=== PATIENT | female | born 1995 | race Hispanic/Latino ===

== ENCOUNTER 2020-01-15 04:37 | Emergency (ER) | payer SELFPAY ==
[2020-01-15] VITALS (13 sets, daily range): BP systolic 124–154; BP diastolic 86–102; PULSE 76–110; RESP 14–25; TEMP 37.1; O2SAT 94–100
--- NOTE | ~2020-01-15 | XR_ITS ---
EXAMINATION: XR chest 2V EXAM DATE: 01/15/2020 05:58 INDICATION: Midline, left-sided chest pain. TECHNIQUE: Frontal and lateral projections of the chest obtained and reviewed. Comparison is made to prior examination from 01/24/2004. FINDINGS: The lungs are clear. There are no pleural effusions. The cardiomediastinal silhouette is within normal limits. There is no pneumothorax suspected. The bones and soft tissues are unremarkab le. IMPRESSION: Normal chest x-ray exam. Reviewed, dictated and finalized at location B. IMPRESSION: Normal chest x-ray exam.
--- NOTE | 2020-01-15 04:46 | ECG_ITS ---
Measurements Intervals [place] Rate: 97 P: 29 TN: 141 QRS: 4 QRSD: 102 T: 33 QT: 352 QTc: 448 Interpretive Statements SINUS RHYTHM BASELINE ARTIFACT- I, III NORMAL ECG Electronically Signed On 01-15-2020 6:42:51 CDT by Michele Merlos D.O.
[2020-01-15] MEDS: ASPIRIN 81 MG CHEWABLE TABLET 324 MG PO (05:09)
[2020-01-15 05:25] LABS: Basophils Absolute Auto 0.1 K/mm3 (0.0-0.1); Basophils Percent Auto 0.7 % (0.2-1.2); Eosinophils Absolute Auto 0.2 K/mm3 (0-0.3); Hematocrit 40.1 % (37.0-47.0); Hemoglobin 13.1 g/dL (12.0-15.0); Immature Granulocyte Absolute 0.11 K/mm3 (0.00-0.031); Immature Granulocyte Percent A 1.3 % (0-0.5); Lymphocytes Absolute Auto 2.73 K/mm3 (0.9-3.2); Lymphocytes Percent Auto 31.7 % (18.3-44.2); Mean Corpuscular HGB Conc 32.7 g/dl (32-36); Mean Corpuscular Hemoglobin 27.9 pg (26-34); Mean Corpuscular Volume 85.5 fl (80-100); Mean Platelet Volume 10.3 fl (7.4-10.4); Monocytes Absolute Auto 0.8 K/mm3 (0.1-0.6); Monocytes Percent Auto 8.7 % (2.6-8.5); Neutrophils Absolute Auto 4.8 K/mm3 (1.3-6.7); Neutrophils Percent Auto 55.6 % (45.5-73.1); Platelet Count Result 300 k/mm3 (150-375); Red Blood Count 4.69 M/mm3 (4.2-5.4); Red Cell Distribution Width 11.4 % (11.5-14.5); White Blood Count 8.6 K/mm3 (4.5-10.0)
[2020-01-15 05:33] LABS: Prothrombin Time 12.8 Seconds (11.1-14.7)
[2020-01-15 05:34] LABS: Partial Thromboplastin Time 34.5 SECONDS (22.3-36.8)
[2020-01-15 05:39] LABS: Anion Gap 5 mmol/L (8-16); Blood Urea Nitrogen 14 mg/dL (7-17); Carbon Dioxide 33 mmol/L (22-30); Chloride 102 mmol/L (98-107); Estimated CRCL calculation 167 ml/min; Estimated Glomerular Filt Rate > 60; Glucose 105 mg/dL (65-105); Potassium 3.6 mmol/L (3.4-5.0); Sodium 140 mmol/L (137-145)
[2020-01-15 05:50] LABS: Troponin I < 0.012 ng/mL (0.000-0.034)
--- NOTE | 2020-01-15 06:30 | ED.CHESTPAIN ---
HPI - Chest Pain General Chief Complaint: Chest Pain <Slim White MD - Last Filed: 01/15/20 06:54> Stated Complaint: chest pain <Slim White MD - Last Filed: 01/15/20 06:54> Time Seen by Provider: 01/15/20 04:47 <Slim White MD - Last Filed: 01/15/20 06:54> History of Present Illness HPI narrative: Patient is a 24-year-old female who presents the ER with chest pain. Chest pain was central/left-sided. Noted to her left shoulder. Lasted approximately 1 hour. No diaphoresis/nausea/vomiting. No shortness of breath. Has had similar symptoms in the past that she attributes to acid reflux but it never radiated to her shoulder. Patient denies feeling particularly anxious but she does endorse depression. 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 She has had to put her life in school on hold while she cares for her mom. Patient is tearful during this discussion. <Slim White MD - Last Filed: 01/15/20 06:54> Related Data Home Medications: Home Medications Medication Instructions Recorded Confirmed No Home Medications 01/15/20 <Slim White MD - Last Filed: 01/15/20 06:54> Allergies/Adverse Reactions: Allergies Allergy/AdvReac Type Severity Reaction Status Date / Time No Known Allergies Allergy Mild Verified 08/22/11 17:32 <Slim White MD - Last Filed: 01/15/20 06:54> Review of Systems Review of Systems: All systems reviewed & are unremarkable except as noted in HPI and below <Slim White MD - Last Filed: 01/15/20 06:54> Constitutional: Constitutional: Denies chills, Denies fever(s) and Denies weakness <Slim White MD - Last Filed: 01/15/20 06:54> ENT: Denies nasal congestion and Denies sore throat <Slim White MD - Last Filed: 01/15/20 06:54> Cardiovascular: Cardiovascular: Reports chest pain, Denies rapid heart rate and Reports radiating jaw, neck or arm pain <Slim White MD - Last Filed: 01/15/20 06:54> Respiratory: Respiratory: Denies cough, Denies dyspnea and Denies wheezing <Slim White MD - Last Filed: 01/15/20 06:54> Gastrointestinal: Gastrointestinal: Denies abdominal pain, Denies nausea and Denies vomiting <Slim White MD - Last Filed: 01/15/20 06:54> PMFSH Past Medical History Medical History: Medical History (Updated 01/15/20 @ 06:54 by Slim White MD) Healthy female adult <Slim White MD - Last Filed: 01/15/20 06:54> Surgical History Surgical History: Surgical History (Updated 01/15/20 @ 06:32 by Slim White MD) No history of previous surgery <Slim White MD - Last Filed: 01/15/20 06:54> Social History Social History: Social History (Updated 01/15/20 @ 06:32 by Slim White MD) Smoking status: Never smoker <Slim White MD - Last Filed: 01/15/20 06:54> Exam Narrative: Exam Narrative: GENERAL: Well-appearing, well-nourished, and in no acute distress. HEAD: Normocephalic, atraumatic. ENT: Mucous membranes moist. CHEST: Clear to auscultation. No respiratory distress. No reproducible pain with palpation. HEART: Regular rate and rhythm. Normal peripheral pulses. ABDOMEN: Soft, nontender, nondistended. EXTREMITIES: Normal range of motion. No edema. SKIN: Warm, dry, no rash. NEURO: Alert and oriented x3. <Slim White MD - Last Filed: 01/15/20 06:54> Course Vital Signs Vital signs: Vital Signs Temperature 37.1 C 01/15/20 04:40 Pulse Rate 110 H 01/15/20 04:40 Respiratory Rate 17 01/15/20 04:40 Blood Pressure 154/102 H 01/15/20 04:40 Pulse Oximetry 100 01/15/20 04:40 Temperature 37.1 C 01/15/20 04:40 Pulse Rate 78 01/15/20 07:31 Respiratory Rate 18 01/15/20 07:31 Blood Pressure 141/98 H 01/15/20 07:31 Pulse Oximetry 100 01/15/20 07:31 <Slim White MD - Last Filed: 01/15/20 06:5
[2020-01-15 08:08] LABS: Troponin I < 0.012 ng/mL (0.000-0.034)
--- NOTE | 2020-01-15 08:16 | PC.NURSE ---
ERP CAITLYN INFORMED THAT 3HOUR TROP IS BACK AND NEGATIVE.
== END 2020-01-15 08:25 | disposition home or self-care (01) ==
PROVIDERS: Emergency Medicine; Emergency Provider Emergency Medicine
DX: R07.89 Other chest pain (principal)
CPT/HCPCS: 36415; 71046; 80048; 84484; 85025; 85610; 85730; 93005; 99284; A9270

== ENCOUNTER 2023-04-15 12:58 | Emergency (ER) | payer SELFPAY ==
[2023-04-15 13:19] VITALS: BP 139/93; PULSE 92; RESP 16; TEMP 37.4; O2SAT 100
--- NOTE | 2023-04-15 13:56 | ED.URI ---
HPI - URI/Sore Throat General Chief Complaint: Upper Respiratory Infection Stated Complaint: Sore Throat Time Seen by Provider: 04/15/23 13:56 History of Present Illness HPI Narrative: 27 year female presented for complaint of sore throat, headache, nausea , fever few days. States symptoms worsened last night. taking TheraFlu without significant relief. Denies vomiting, diarrhea, lethargy, or difficulty maintaining secretions. Related Data Allergies Allergy/AdvReac Type Severity Reaction Status Date / Time No Known Allergies Allergy Mild Verified 04/15/23 13:32 Review of Systems Review of Systems: CONSTITUTIONAL: Denies body aches, fever, chills, or sweats. EYES: Denies visual changes, redness, or discharge. ENT: reports sore throat Denies rhinorrhea, congestion, or otalgia. CARDIOVASCULAR: Denies chest pain, palpitations, or edema. RESPIRATORY: Denies dyspnea. GASTROINTESTINAL: Denies abdominal pain, vomiting, or diarrhea. SKIN: Denies rash, itching, or wounds. MUSCULOSKELETAL: Denies back pain, joint pain, or myalgia. [facility] Past Medical History Medical History Healthy female adult Surgical History Surgical History No history of previous surgery Social History Social History Smoking status: Never smoker Exam Narrative: GENERAL: mildly Ill-appearing, no acute distress. EYES: conjunctivae clear ENT: Mucous membranes moist. TM pearly sheehan with normal light reflex bilaterally; no tragal tenderness. Oropharynx erythematous Tonsils enlarged 2+and without exudate. No drooling, no hoarseness, no trismus, uvula midline. No tripod positioning, hot potato voice, or soft palate swelling. NECK: Supple. No lymphadenopathy CHEST: Clear to auscultation, breath sounds equal. No respiratory distress, speaks in full sentences. HEART: Regular rate and rhythm. No murmur heard. SKIN: Warm, dry, no rash. NEURO: Alert and oriented x3. Course Course Emergency Course: Patient is aware of diagnosis, understands and agrees to treatment plan. Anticipatory guidance given. Patient agrees to follow-up as directed and is aware of reasons to seek care at the emergency department. Portions of this record may have been created with voice recognition software Level of Care: Express Care Visit Vital Signs Vital signs: Vital Signs Temperature 99.3 F 04/15/23 13:19 Pulse Rate 92 04/15/23 13:19 Respiratory Rate 16 04/15/23 13:19 Blood Pressure 139/93 H 04/15/23 13:19 Pulse Oximetry 100 04/15/23 13:19 Oxygen Delivery Room Air 04/15/23 13:19 Temperature 99.3 F 04/15/23 13:19 Pulse Rate 92 04/15/23 13:19 Respiratory Rate 16 04/15/23 13:19 Blood Pressure 139/93 H 04/15/23 13:19 Pulse Oximetry 100 04/15/23 13:19 Oxygen Delivery Room Air 04/15/23 13:19 MDM - URI/Sore Throat MDM Narrative Medical decision making narrative: POS strep result reviewed with pt. Advise supportive treatments. Patient is appropriate for outpatient treatment and follow-up. Differential Diagnosis Differential diagnosis: Likely upper respiratory infection, viral infection and pharyngitis Lab Data Labs: Strep Screen Positive Group A Strep *(Reference Range: Negative)* Discharge Plan Discharge Clinical Impression: Strep pharyngitis Patient Disposition: Home, Self-Care Condition: Stable Instructions: Antibiotic Form, Strep Throat (ED) Additional Instructions: - Take the antibiotic as directed. Fever and sore throat typically resolve within one to three days. Most patients can return to work, after 12 to 24 hours of antibiotic therapy, provided you are fever free and otherwise well. -Eat and drink things that are easy to swallow, like soft foods, cool liquid
== END 2023-04-15 14:08 | disposition home or self-care (01) ==
PROVIDERS: Emergency Provider Nurse Practitioner Family
DX: J02.0 Streptococcal pharyngitis (principal)
CPT/HCPCS: 87880; 99213; G0463

== ENCOUNTER 2023-05-10 09:01 | Emergency (ER) | payer SELFPAY ==
--- NOTE | ~2023-05-10 | XR_ITS ---
Cervical Spine: AP, oblique, lateral, open-mouth views Clinical History: Pain Findings: There is reversal normal cervical lordosis.. The vertebral bodies and posterior elements a ppear intact. The intervertebral disc spaces are well maintained. Pre-vertebral soft tissues are unr emarkable. Impression: Reversal of the normal cervical lordosis, otherwise no significant abnormality seen. Reviewed, dictated and finalized at location . [facility]TER Impression: Reversal of the normal cervical lordosis, otherwise no significant abnormality seen.
--- NOTE | ~2023-05-10 | XR_ITS ---
Left Knee Technique: AP, lateral, and sunrise views were obtained. Clinical History: Injury Findings: No fracture or dislocation is seen. Osseous alignment is anatomic. Joint spaces are preserv ed without degenerative or erosive change. Soft tissues are unremarkable. No joint effusion is seen. Impression: Unremarkable left knee radiographs. Reviewed, dictated and finalized at [facility]. [employer] SPECIALIST Impression: Unremarkable left knee radiographs.
[2023-05-10 09:11] VITALS: BP 122/74; PULSE 86; RESP 18; TEMP 37.3; O2SAT 96
--- NOTE | 2023-05-10 10:33 | ED.FALL ---
HPI - Fall General Chief Complaint: Fall Stated Complaint: Fall Source: patient Mode of arrival: ambulatory Limitations: no limitations History of Present Illness HPI Narrative: Patient presents for evaluation after a fall last night. She states she tripped over her dog walking down five steps. She fell and hit her left knee against the ground. She then fell backward and felt a strain in her neck thereafter. She did not hit her head. No LOC. She is not on blood thinners. She currently rates her pain in her left knee as 6/10 and neck as 5/10. She took one dose of ibuprofen with some improvement in her symptoms thereafter. No loss of ROM in the neck or the knee. Movement makes her pain worse. She denies radicular component to pain in both areas and denies any paresthesias. Related Data Allergies Allergy/AdvReac Type Severity Reaction Status Date / Time No Known Allergies Allergy Mild Verified 05/10/23 10:28 Review of Systems Review of Systems: CONSTITUTIONAL: Denies fever, chills, or sweats. EYES: Denies visual changes, redness, or discharge. ENT: Denies rhinorrhea, congestion, sore throat, or otalgia. CARDIOVASCULAR: Denies chest pain, palpitations, or edema. RESPIRATORY: Denies cough or dyspnea. GASTROINTESTINAL: Denies abdominal pain, nausea, vomiting, or diarrhea. GENITOURINARY: Denies dysuria or hematuria. SKIN: Denies rash or itching. MUSCULOSKELETAL: Reports neck pain and left knee pain NEUROLOGIC: Denies headache, numbness, dizziness, or weakness. PSYCHIATRIC: Denies anxiety or depression. PMFSH Past Medical History Medical History Healthy female adult Surgical History Surgical History No history of previous surgery Family History Family History Mother Family history non-contributory Social History Social History Smoking status: Never smoker Substance use: never Living arrangements: with family Spiritual care concerns: No Exam Narrative: GENERAL: Well-appearing, well-nourished, and in no acute distress. HEAD: Normocephalic, atraumatic. EYES: PERRLA and EOMI. ENT: Nares clear, no rhinorrhea or epistaxis. Mucous membranes moist. Oropharynx without tonsillar hypertrophy exudate or other lesions. Bilateral TMs pearly sheehan nonbulging NECK: Supple. No adenopathy or masses. No carotid bruits or JVD. There is tenderness in midline and paraspinous muscles of cervical spine. Full ROM of neck intact. CHEST: Clear to auscultation. No respiratory distress. No wheezes rales or rhonchi HEART: Regular rate and rhythm. No murmur heard. Normal peripheral pulses. ABDOMEN: Soft, nontender, nondistended, normal active bowel sounds. EXTREMITIES: There is mild tenderness to the anterior aspect of left knee. No crepitus or deformity. There is mild swelling present. Full ROM of left knee intact. SKIN: Warm, dry, no rash. NEURO: No focal deficits. Alert and oriented x3. PSYCH: Normal mood and affect. Course Course Emergency Course: This is a 27-year-old female who presented for evaluation of neck pain and left knee pain following a fall last night. X-rays were negative for fracture. Patient did not have any blunt trauma to the neck warranting CT imaging. She appears in no apparent distress. Will dc with ibuprofen and flexeril. Application of warm moist heat may help. Follow up with primary provider. Go to the ER for worsening symptoms. Pt in agreement with plan of care. Level of Care: Express Care Visit Vital Signs Vital signs: Vital Signs Temperature 37.3 C 05/10/23 09:11 Pulse Rate 86 05/10/23 09:11 Respiratory Rate 18 05/10/23 09:11 Blood Pressure 122/74 05/10/23 09:11 Pulse Oximetry 96 05/10/23 09:11 Oxygen Delivery Room Air
== END 2023-05-10 11:01 | disposition home or self-care (01) ==
PROVIDERS: Emergency Provider Nurse Practitioner
DX: S16.1XXA Strain of muscle, fascia and tendon at neck level, initial encounter (principal); S80.02XA Contusion of left knee, initial encounter; W10.9XXA Fall (on) (from) unspecified stairs and steps, initial encounter
CPT/HCPCS: 72050; 73564; 99214; G0463

== ENCOUNTER 2023-05-14 09:54 | Emergency (ER) | payer SELFPAY ==
[2023-05-14 10:01] VITALS: BP 143/87; PULSE 86; RESP 16; TEMP 36.9; O2SAT 100
--- NOTE | 2023-05-14 10:01 | ED.GENADULT ---
HPI - General Adult General Chief complaint: Back Pain/Injury Stated complaint: Back Pain Time Seen by Provider: 05/14/23 10:01 27-year-old female patient presents to the [facility] with complaints of neck pain. Patient was seen in the [facility] earlier this week after she fell down some stairs injuring her knee and complaining of neck pain. Patient had imaging done at that time and there was no acute fractures noted. Patient was given ibuprofen and muscle relaxants and told to follow-up with her primary doctor. Patient states that last night she went to work and felt like she was continued to have some pain and soreness and tightness to the neck area. Patient states she left work yesterday after about 2 hours. 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 Patient states she has continued to take the ibuprofen and muscle relaxers but states she does not take the muscle relaxers while at work. Patient states she has been using heat to the neck area. Denies any numbness or tingling to the legs or upper extremities. Denies any loss of bowel or bladder control. Source: patient Mode of arrival: ambulatory Limitations: no limitations Related Data Allergies Allergy/AdvReac Type Severity Reaction Status Date / Time No Known Allergies Allergy Mild Verified 05/10/23 10:28 Review of Systems Review of Systems: CONSTITUTIONAL: Denies fever, chills, or sweats. EYES: Denies visual changes, redness, or discharge. ENT: Denies rhinorrhea, congestion, sore throat, or otalgia. CARDIOVASCULAR: Denies chest pain, palpitations, or edema. RESPIRATORY: Denies cough or dyspnea. GASTROINTESTINAL: Denies abdominal pain, nausea, vomiting, or diarrhea. GENITOURINARY: Denies dysuria or hematuria. SKIN: Denies rash or itching. MUSCULOSKELETAL: Denies back pain, joint pain, or myalgia. Positive neck pain. NEUROLOGIC: Denies headache, numbness, or weakness. PSYCHIATRIC: Denies anxiety or depression. [facility] Past Medical History Medical History Healthy female adult Surgical History Surgical History No history of previous surgery Family History Family History Mother Family history non-contributory Social History Social History Smoking status: Never smoker Substance use: never Living arrangements: with family Spiritual care concerns: No Comments At the time of my signature I agree with nursing past medical history, surgical, social, and family history. There is no relevant family history pertinent to the presenting complaint. Exam Narrative: GENERAL: Well-appearing, well-nourished, and in no acute distress. HEAD: Normocephalic, atraumatic. EYES: PERRLA and EOMI. ENT: Nares clear, no rhinorrhea or epistaxis. Mucous membranes moist. NECK: Supple, no lymphadenopathy. No surface trauma, no soft tissue. muscle tenderness noted to bilateral sides of the trapezius muscle no obvious spasm noted. Trachea midline. No subq emphysema or crepitus. No ame tenderness, step-offs or deformity to firm Palpation at posterior midline. FROM without limitation or pain, normal flexion, extension,Lateral bending, rotation, and axial load. CHEST: Clear to auscultation. No respiratory distress. HEART: Regular rate and rhythm. No murmur heard. Normal peripheral pulses. ABDOMEN: Soft, nontender, nondistended, normal active bowel sounds. EXTREMITIES: Normal range of motion. No edema. BACK: Patient is able to ambulated without assistance. Pt is seated on the stretcher in no obvious distress. No surface trauma noted. No muscle tenderness to Palpation. No spasm or mass. No step-offs or deformity noted to the cervical, thoracic or lumbar spine to firm Palpation at the midline. No CVA tenderness to
== END 2023-05-14 10:17 | disposition home or self-care (01) ==
PROVIDERS: Emergency Provider Nurse Practitioner Family
DX: S16.1XXA Strain of muscle, fascia and tendon at neck level, initial encounter (principal); W10.9XXA Fall (on) (from) unspecified stairs and steps, initial encounter
CPT/HCPCS: 99212; G0463

== ENCOUNTER 2025-03-10 05:32 | Emergency (ER) | payer SELFPAY ==
[2025-03-10 05:38] VITALS: BP 115/88; PULSE 101; RESP 20; TEMP 36.8; O2SAT 100
[2025-03-10] MEDS: FLUORESCEIN SOD 1 MG/STRIP EACH EYE (05:51)
[2025-03-10] MEDS: TETRACAINE HCL 0.5% OPHTH SOLN 4 ML BTL 1 DROP EACH EYE (05:52)
--- NOTE | 2025-03-10 05:52 | ED.EYEPROB ---
HPI - Eye Problem General Chief complaint: Eye Problems Stated complaint: pink eye left eye since Tuesday. Time Seen by Provider: 03/10/25 05:36 History of Present Illness HPI Narrative: Patient has noticed redness to R eye since Tuesday, has gotten increasingly irritated uncomfortable, and she has noticed her vision seems more blurry since Tuesday. Related Data Allergies Allergy/AdvReac Type Severity Reaction Status Date / Time No Known Allergies Allergy Mild Verified 03/10/25 05:33 Review of Systems Review of Systems: All systems reviewed & are unremarkable except as noted in HPI and below PMFSH Past Medical History Medical History Healthy female adult Surgical History Surgical History No history of previous surgery Family History Family History Mother Family history non-contributory Social History Social History Smoking status: Never smoker Substance use: never Living arrangements: with family Spiritual care concerns: No Exam Narrative: EXAMINATION OF ORGAN SYSTEMS/BODY AREAS: Constitutional: Vital signs per nursing GENERAL: Appears slightly uncomfortable, constant tears from right eye HEAD: Normal with no signs of head trauma. EYES: EOMI, PERRL, R eye very injected, IOP 12, no fluorescein uptake, VA 20/100 vs L eye 20/20 ENT: Hearing grossly intact LUNGS: Nonlabored breathing. HEART: [Regular rate and rhythm] ABD: [Soft], [nontender to palpation] EXT: Normal range of motion SKIN: [No rashes or lesions.] NEURO: [Alert. No gross focal sensory or strength deficits.] PSYCH: Normal affect Course Vital Signs Vital signs: Vital Signs Temperature 98.3 F 03/10/25 05:38 Pulse Rate 101 H 03/10/25 05:38 Respiratory Rate 20 03/10/25 05:38 Blood Pressure 115/88 03/10/25 05:38 Pulse Oximetry 100 03/10/25 05:38 Temperature 98.3 F 03/10/25 05:38 Pulse Rate 101 H 03/10/25 05:38 Respiratory Rate 20 03/10/25 05:38 Blood Pressure 115/88 03/10/25 05:38 Pulse Oximetry 100 03/10/25 05:38 Oxygen Delivery Room Air 03/10/25 05:46 MDM - Eye Problem MDM Narrative Medical decision making narrative: Patient presents with painful tearing red right eye with decreased vision. On exam, EOMI, PERRL, R eye very injected, IOP 12, no fluorescein uptake, VA 20/100 vs L eye 20/20 which I felt was concerning and therefore will consult Ophthalmology. Patient had great relief after tetracaine. Discussed with Dr. Sarmad keenan at [facility], who recommends starting Maxitrol drops, close follow-up arranged for Tuesday, discussed this with patient was agreeable to plan, strict return precautions discussed. Discharge Plan Discharge Clinical Impression: Conjunctivitis Patient Disposition: Home Condition: Stable Instructions: Conjunctivitis (ED) Additional Instructions: Please follow up with [facility] at 8:30am Tuesday You can call [phone] for any concerns/issues. If your symptoms worsen, especially if you start having more pain or worsening vision, please go straight to either [facility] or [facility]. Patient Language: Maori Prescriptions: New neomycin-polymyxin B-dexameth [Maxitrol] 3.5mg/mL-10,000 unit/mL-0.1 % drops,suspension 1 drp RIGHT EYE Q8H 5 Days Qty: 5 0RF Artificial Tears (cmc) 1 % drops 1 drp RIGHT EYE Q6H Qty: 15 0RF No Action ibuprofen 800 mg tablet 800 mg PO TID PRN (Reason: pain) Qty: 30 0RF cyclobenzaprine 10 mg tablet 10 mg PO TID PRN (Reason: muscle spasm) Qty: 30 0RF Follow-up/Referrals: Arturo Kaur MD [Primary Care Provider, Family Practice] Stand Alone Forms: Work/School Release IP
[2025-03-10] MEDS: POLYMYXIN/TRIMETHOPRIM OPHTH 10 ML DROPS 1 DROP RIGHT EYE (06:31)
== END 2025-03-10 06:58 | disposition home or self-care (01) ==
PROVIDERS: Emergency Provider Emergency Medicine; PCP Emergency Medicine
DX: H10.9 Unspecified conjunctivitis (principal)
CPT/HCPCS: 99283; A9270